=== PATIENT | male | born 1975 | race Caucasian/White ===

== ENCOUNTER → 2020-12-07 11:08 | Outpatient (BNVA) | payer OTHER, SELFPAY | PROVIDERS: PCP Nurse Practitioner Family; Visit Provider Nurse Practitioner Family | DX: Z13.89 Encounter for screening for other disorder (principal) ==

== ENCOUNTER → 2021-06-14 10:39 | Outpatient (BNVA) | payer OTHER, SELFPAY | PROVIDERS: PCP Nurse Practitioner Family; Visit Provider Nurse Practitioner Family ==

== ENCOUNTER → 2021-11-22 09:50 | Outpatient (BNVA) | payer OTHER, SELFPAY | PROVIDERS: PCP Nurse Practitioner Family; Referring Provider Nurse Practitioner Family; Visit Provider Nurse Practitioner Family ==

== ENCOUNTER → 2022-01-03 10:02 | Outpatient (BNVA) | payer OTHER, SELFPAY | PROVIDERS: PCP Nurse Practitioner Family; Visit Provider Internal Medicine | DX: G47.33 Obstructive sleep apnea (adult) (pediatric) (principal); E66.01 Morbid (severe) obesity due to excess calories; R05.9 Cough, unspecified; R53.83 Other fatigue; I35.8 Other nonrheumatic aortic valve disorders; Z99.89 Dependence on other enabling machines and devices | CPT/HCPCS: 99202 ==

== ENCOUNTER 2022-01-04 11:06 | Outpatient (REF) | payer OTHER, SELFPAY ==
--- NOTE | 2022-01-04 10:31 | PFT_ITS ---
FLOWS: FEV1 100% of predicted at 3.53 L. FVC 87% of predicted at 3.91 L. FEV1 to FVC ratio of 0.91. No bronchodilator response. LUNG VOLUMES: Total lung capacity 87% of predicted at 5.38 L. Residual volume 75% of predicted at 1.34 L. Diffusion capacity is normal. IMPRESSION: No obstructive or restrictive ventilatory defect. No bronchodilator response. Decreased expiratory reserve volume suggests extrathoracic restriction, likely secondary to abdominal obesity. Patrick Ayon MD AP/MODL / [id number]
== END 2022-01-04 11:07 | disposition home or self-care (01) ==
LOC: HO.RESP 11:06
PROVIDERS: PCP Nurse Practitioner Family; Visit Provider Internal Medicine
DX: R05.9 Cough, unspecified (principal)
CPT/HCPCS: 94060; 94727; 94729

== ENCOUNTER 2023-04-24 10:32 | Outpatient (AMB) | payer OTHER, SELFPAY ==
[2023-04-24 10:46] VITALS: BP 140/88; PULSE 93; O2SAT 97; BMI 37.8
--- NOTE | 2023-04-24 10:46 | MHC.PC.OV ---
Vital Signs 04/24/23 10:46 Height 5 ft 6 in Weight 234 lb 2 oz BMI 37.8 BP 140/88 H Blood Pressure Location Lt brachial Position Sitting Pulse 93 Pulse Source Pulse Oximeter Pulse Oximetry (%) 97 Oxygen Delivery Method Room Air Intake Visit Reasons: Discuss referral Allergies lisinopril Allergy (Unknown, Verified 04/24/23 10:47) Cough Tobacco use date assessed: 04/24/23 Dental Screening Dental Screen Date: 04/24/23 Did you have a dental visit in the last 12 months?: Yes Did you have a dental problem in the last 6 months where you did not have access to dental care?: No Was dental information given to patient?: Patient has dentist HPI Discuss referral HPI Details Pt reports a skin lesion to his right cheek. He also reports a large skin tag to his mid upper back that gets caught on occupational equipment. He would like a referral to derm, will refer. Denies fever, chills, and dizziness. Pt has a hx of nerve root compression. He needs this documented. Pt reports that his back acts up when doing long distance running for the [employer], so I do not want him doing this. [facility]LY [facility], [facility] Medical History (Updated 04/24/23 @ 11:17 by Gil Duarte, [facility]) Morbid obesity Nerve root compression Systolic murmur of aorta Surgical History Hx of appendectomy Social History Housing: House Alcohol intake: former Patient Tobacco Use Status: Former Tobacco user e-Cigarette/Vaping Use: Never Used Second Hand Smoke Exposure: No service: Yes Current occupational status: employed Current occupational exposures/hazards: Yes Cognitive needs: No Hearing needs: No Vision needs: No Physical exam (Primary Care) Vital Signs: Last Vital Signs Pulse 93 04/24/23 10:46 BP 140/88 H 04/24/23 10:46 Pulse Ox 97 04/24/23 10:46 Oxygen Delivery Method Room Air 04/24/23 10:46 BMI result Body Mass Index 37.8 Tobacco/Smoking Status: Tobacco use Status Tobacco use date assessed 04/24/23 04/24/23 10:51 Patient Tobacco Use Status Former Tobacco user 04/24/23 10:51 e-Cigarette/Vaping Use Never Used 04/24/23 10:51 Const General: cooperative Nutritional Appearance: obese Orientation/consciousness: patient oriented x3 Resp Effort & Inspection: normal respiratory effort Auscultation: clear to auscultation bilaterally Cardio Rate: regular rate Rhythm: regular rhythm Heart sounds: S1 normal heart sound present, S2 normal heart sound present and Murmur heart sound present systolic Skin Other: macular lesion to right side of face, slight discoloration, large skin tag to upper mid back Neuro General: patient oriented x3 Psych Appearance: grossly normal Mental Status: mental status grossly normal Speech and movement: Normal speech and movement present Affect: normal affect Attitude: cooperative Thought process: Normal thought process present Thought content: Normal thought content present Insight: Good insight present (Psych) Judgement: Good judgement present (Psych) Assessment and Plan Assessment & Plan (1) Physical exam: Code(s): Z00.00 - Encounter for general adult medical examination without abnormal findings Plan The patient agreed to the use of a medical genetics director for this encounter. Scribed for JOESPH Felton by Evelyn Knapp medical genetics director, on 04/24/2023 at 11:00 EST. Orders: Orders Comprehensive [place]. Panel Fast Today Z00.00 - Encounter for general adult medical examination without abnormal findings Lipid Panel Today Z00.00 - Encounter for general adult medical examination without abnormal findings TSH reflex Free T4 Today Z00.00 - Encounter for general adult medical examination without abnormal findings Complete Blood Count Auto Diff Today Z00.00 - Encounter for general adult medical examination without abnormal findings UA CC w/rflx Micro + Cult Today Z00.00 - Encounter for general adult medical examination without abnormal findings Referrals Dermatology Referral L98.9 - Disorder of the skin and subcutaneous tissue, unspecified Coding Level of Care Code Est Pt Level 3 (00203) Diagnoses Physical exam Z00.00
== END 2023-04-24 11:28 | disposition home or self-care (01) ==
PROVIDERS: Visit Provider Nurse Practitioner Family
DX: L98.9 Disorder of the skin and subcutaneous tissue, unspecified (principal)
CPT/HCPCS: 99213

== ENCOUNTER 2023-08-13 13:30 | Outpatient (AMB) | payer OTHER, SELFPAY ==
[2023-08-13 13:44] VITALS: RESP 12; BMI 38.4
--- NOTE | 2023-08-13 13:44 | MHC.OFFVIS ---
Intake Vital Signs 08/13/23 13:44 Height 5 ft 6 in Weight 238 lb BMI 38.4 Blood Pressure Location Lt brachial Position Sitting Respiration 12 Pulse Source Pulse Oximeter Intake Visit Reasons: Low Back Pain, Unspecified /confirmed Allergies lisinopril Allergy (Unknown, Verified 08/13/23 13:46) Cough Medication List - Last Reconciled 08/13/23 by Anabella Ortiz LPN albuterol sulfate 90 mcg/actuation (ProAir HFA) 2 puffs inhalation Q4-6H PRN atorvastatin 20 mg PO BEDTIME 90 days cholecalciferol (vitamin D3) 25 mcg PO DAILY losartan 25 mg PO DAILY 90 days HPI Low Back Pain, Unspecified /confirmed HPI Details 48-year-old male who presents today to the office for an evaluation of low back pain. The patient reports low back pain that started about 5 years ago. His last visit was in 2019. He describes his pain as intermittent, sharp, and stabbing sensations in his low back. He rates his pain at 10/10 in intensity. His average pain is 6/10 in intensity. His pain radiates from the side up to the paraspinal area. General activities, recreational activities, and sleeping are affected by pain. He has been doing physical therapy and home exercises for the past two years without significant progress. He states that his pain starts to worsen after running for a quarter mile. He states that a completely filled bladder worsens the pain in the back. He also reports his legs going numb if he sits flat on the floor for more than 30 minutes. His back pain starts worsening after one and a half minutes of plank exercise. [facility] Medical History (Updated 08/14/23 @ 13:29 by Alvino Milton MD) Nerve root compression Systolic murmur of aorta Morbid obesity Surgical History Hx of appendectomy Social History Housing: House Alcohol intake: former Patient Tobacco Use Status: Former Tobacco user e-Cigarette/Vaping Use: Never Used Second Hand Smoke Exposure: No service: Yes Current occupational status: employed Current occupational exposures/hazards: Yes Cognitive needs: No Hearing needs: No Vision needs: No Review of Systems Const All systems reviewed & are unremarkable except as noted in HPI and below Physical Exam Vital Signs: Last Vital Signs Resp 12 08/13/23 13:44 BMI result Body Mass Index 38.4 General: Appears afebrile. Alert and oriented. Mood and affect appropriate. Follows and participates in conversation appropriately. Respiratory effort is unlabored. Able to transition from sit to stand unassisted. Ambulates with bilaterally normal heel strike and toe off. Exquisite tenderness on palpation just above the gluteal cleft in the midline.? Forward flexion does not reproduce pain. Rightward lateral axial rotation makes the right lower back more sensitive. Facet loading is positive more on the right than left. Lumbar extension reproduces pain. Results Reviewed Results Reviewed: EXAMINATION: MR LUMBAR SPINE WITHOUT CONTRAST Oct 2019 CLINICAL INFORMATION: Acute midline low back pain. COMPARISON: None. TECHNIQUE: MRI of the lumbar spine was obtained using routine sequences without contrast. FINDINGS: VERTEBRAL BODIES AND PARASPINAL STRUCTURES: Superior endplate Schmorl's node noted at L5. The S1 vertebra is transitional and partially lumbarized. A rudimentary S1-S2 disc space is present. Endplate spurring and mild disc space narrowing visible on sagittal imaging at the T11-T12 level. The marrow signal is within normal limits. There are no compression fractures or subluxations. The paraspinal soft tissues are unremarkable. There are mild degenerative changes of the sacroiliac joints. CONUS MEDULLARIS AND CAUDA EQUINA: Normal, terminating at the level of L1. No lower cord signal abnormality is seen. The cauda equina nerve roots are normal. SPINAL LEVELS: L1-L2, L2-L3, and L3-L4: Well-hydrated normal appearance of the discs without central canal stenosis or foraminal narrowing. L4-L5: Mild disc bulge with endplate Schmorl's nodes. No central canal stenosis or foraminal narrowing. No focal disc protrusion. L5-S1: Hypertrophic facet arthropathy and minimal annular bulge without central canal stenosis. Facet spurring impinges upon the exiting left L5 nerve root in the neural foramen. IMPRESSION: Hypertrophic facet arthropathy protruding into the left L5-S1 neural foramen mildly distorting the exiting left L5 nerve root. Mild spondylitic changes at L4-L5. No central canal stenosis. Assessment & Plan Assessment & Plan (1) Lumbar radiculitis: Code(s): M54.16 - Radiculopathy, lumbar region (2) Lumbar spondylosis: Code(s): M47.816 - Spondylosis without myelopathy or radiculopathy, lumbar region (3) Vertebrogenic low back pain: Code(s): M54.51 - Vertebrogenic low back pain Plan Ordered a repeat MRI scan of the lumbar spine for further evaluation. We will review the MRI scan report and proceed with either facet interventions or BVN ablation. For the time being, I encouraged the patient to perform gentle exercises and swim. It is also recommended to try a good mattress and pillow at night. Scribed for Dr. Milton by Luciano Romero, biomedical service engineer, on 08/13/2023. I, Dr. Milton, have personally reviewed and agree with the information entered by the scribe. Coding Level of Care Code New Pt Level 4 (02874) Diagnoses Lumbar radiculitis M54.16 Lumbar spondylosis M47.816 Vertebrogenic low back pain M54.51
== END 2023-08-13 14:24 | disposition home or self-care (01) ==
PROVIDERS: PCP Nurse Practitioner Family; Visit Provider Internal Medicine
DX: M54.16 Radiculopathy, lumbar region (principal); M47.816 Spondylosis without myelopathy or radiculopathy, lumbar region; M54.51 Vertebrogenic low back pain
CPT/HCPCS: 99204

== ENCOUNTER → 2023-08-13 13:30 | Outpatient (BNVA) | payer OTHER, SELFPAY | PROVIDERS: PCP Nurse Practitioner Family; Visit Provider Internal Medicine | DX: M54.16 Radiculopathy, lumbar region (principal); M47.816 Spondylosis without myelopathy or radiculopathy, lumbar region; M54.51 Vertebrogenic low back pain | CPT/HCPCS: 99202 ==

== ENCOUNTER 2023-10-06 13:45 | Outpatient (REF) | payer OTHER, SELFPAY | END 2023-10-06 13:46 | disposition home or self-care (01) | LOC: HO.MRI 13:45 | PROVIDERS: Visit Provider Internal Medicine | DX: M54.16 Radiculopathy, lumbar region (principal) | CPT/HCPCS: 72148 ==

== ENCOUNTER 2023-10-26 10:07 | Outpatient (AMB) | payer OTHER, SELFPAY ==
--- NOTE | 2023-10-26 10:08 | A.OFFVIS_ITS ---
Intake Vital Signs 10/26/23 10:10 Height 5 ft 6 in Weight 232 lb BMI 37.4 BP 178/98 H Blood Pressure Location Lt brachial Position Sitting Respiration 12 Pulse 76 Pulse Source Pulse Oximeter Pulse Oximetry (%) 98 Oxygen Delivery Method Room Air Intake Visit Reasons: MRI FOLLOW UP Intake Note: Pt's BP grossly elevated, he states he has not been taking his BP med. I encouraged him to do so Allergies lisinopril Allergy (Unknown, Verified 10/26/23 10:14) Cough Medication List - Last Reconciled 10/26/23 by Anabella Ortiz LPN albuterol sulfate 90 mcg/actuation (ProAir HFA) 2 puffs inhalation Q4-6H PRN trazodone 25 mg PO DAILY HPI MRI FOLLOW UP HPI Details 48-year-old male who presents today to t he office for an MRI scan follow-up. We reviewed the MRI scan result with today. We reviewed the MRI results today that showed some modic changes at the superior endplate of L4 as well. Since his last visit, he reports improvement in his low back pain. He is also been working on his weight loss. He attributes his improvement in low back symptoms to weight loss. He continues to have 7-8/10 in intensity at the end of the day when he engages in running or strenuous exercise. [facility]LY [facility] Medical History (Updated 08/14/23 @ 13:29 by Alvino Milton MD) Nerve root compression Systolic murmur of aorta Morbid obesity Surgical History Hx of appendectomy Social History Housing: House Alcohol intake: former Patient Tobacco Use Status: Former Tobacco user e-Cigarette/Vaping Use: Never Used Second Hand Smoke Exposure: No service: Yes Current occupational status: employed Current occupational exposures/hazards: Yes Cognitive needs: No Hearing needs: No Vision needs: No Review of Systems Const All systems reviewed & are unremarkable except as noted in HPI and below Physical Exam Vital Signs: Last Vital Signs Pulse 76 10/26/23 10:10 Resp 12 10/26/23 10:10 BP 178/98 H 10/26/23 10:10 Pulse Ox 98 10/26/23 10:10 Oxygen Delivery Method Room Air 10/26/23 10:10 BMI result Body Mass Index 37.4 General: Appears afebrile. Alert and oriented. Mood and affect appropriate. Follows and participates in conversation appropriately. Respiratory effort is unlabored. Able to transition from sit to stand unassisted. Ambulates with bilaterally normal heel strike and toe off. Forward flexion reproduces pain. Rising up from the forward flexed position also reproduces pain. Lumbar extension reproduces mild pain in the axial low back. Results Reviewed Results Reviewed: 10/06/23: MR LUMBAR SPINE WITHOUT CONTRAST FINDINGS: There is transitional lumbosacral anatomy with lumbarization of S1 and rudimentary disc space at S1-S2 Normal anatomic alignment. No suspicious marrow signal or focal osseous lesion. T12 vertebral body hemangioma. No significant marrow edema. Small L5 superior endplate Schmorl's node. The vertebral body heights are maintained. Disc desiccation and mild height loss at L4-L5. Mild degenerative disc disease and endplate spurring at T11-T12. The conus medullaris terminates at the level of L1-L2. The distal spinal cord is normal in appearance. The cauda equina nerve roots appear normal. No significant abnormalities of the paraspinal musculature. Limited evaluation of the intra-abdominal structures without significant abnormalities. The abdominal aorta is of normal contour and caliber. SPINAL LEVELS: L1-L2: No significant spinal canal or neuroforaminal narrowing. L2-L3: No significant spinal canal or neuroforaminal narrowing. L3-L4: No significant spinal canal or neuroforaminal narrowing. L4-L5: No significant spinal canal or neuroforaminal narrowing. Minimal disc bulge L5-S1: Facet arthropathy. Minimal disc bulge. No significant central spinal canal stenosis. Stable mild bilateral neural foraminal narrowing. IMPRESSION: 1. 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 2. Mild degenerative changes of the lower lumbar spine. No significant spinal canal stenosis or high-grade neural foraminal narrowing. Assessment & Plan Assessment & Plan (1) Vertebrogenic low back pain: Code(s): M54.51 - Vertebrogenic low back pain (2) Lumbar spondylosis: Code(s): M47.816 - Spondylosis without myelopathy or radiculopathy, lumbar region Plan Symptoms appear to be secondary to vertebral endplate changes. There is a Schmorl's node at superior L5 endplate and type 1 Modic changes at inferior L4 endplate. We will schedule him for BVN ablation L4, L5. Discussed the risks and benefits of the procedure with the patient in detail. All questions were answered. The patient is on board with the plan. Justification for interventional therapy: ? Patient with average pain > 6/10 ? Patient has exhausted conservative therapy ? Patient unable to tolerate physical therapy due to pain Scribed for Dr. Milton by Luciano Romero, medical research tech, on 10/26/2023. I, Dr. Milton, have personally reviewed and agree with the information entered by the scribe. Coding Level of Care Code Est Pt Level 4 (64268) Diagnoses Vertebrogenic low back pain M54.51 Lumbar spondylosis M47.816
[2023-10-26 10:10] VITALS: BP 178/98; PULSE 76; RESP 12; O2SAT 98; BMI 37.4
== END 2023-10-26 10:51 | disposition home or self-care (01) ==
PROVIDERS: PCP Nurse Practitioner Family; Visit Provider Internal Medicine
DX: M54.51 Vertebrogenic low back pain (principal); M47.816 Spondylosis without myelopathy or radiculopathy, lumbar region
CPT/HCPCS: 99214

== ENCOUNTER → 2023-10-26 10:07 | Outpatient (BNVA) | payer OTHER, SELFPAY | PROVIDERS: PCP Nurse Practitioner Family; Visit Provider Internal Medicine | DX: M47.816 Spondylosis without myelopathy or radiculopathy, lumbar region (principal); M54.51 Vertebrogenic low back pain | CPT/HCPCS: 99212 ==

== ENCOUNTER 2023-11-19 06:50 | Outpatient (REF) | payer OTHER, SELFPAY ==
[2023-11-19 11:36] LABS: Appearance Urine Turbid; Color Urine Yellow; Glucose Urine UA >=1000 mg/dL (Negative); Leukocyte Esterase Urine Negative (Negative); Nitrite Urine Negative (Negative); PH 5.5 (5.0-9.0); Specific Gravity - Urine >= 1.030 (1.005-1.025); UMIC TRIGGER UACC YES; Urine Blood Negative (Negative); Urine Ketones Negative (Negative); Urine Protein Negative (Neg-Trace)
[2023-11-19 11:39] LABS: MANUAL DIFF FLAG NO
[2023-11-19 11:40] LABS: Bacteria Urine None Seen (None Seen); Hyaline Casts Urine 0-2 /LPF (0-2); RBC Urine 0-2 /HPF (0-2); Squamous Epithelial Cell Urine 0-2 /HPF (0-2); WBC Urine 0-5 /HPF (0-5)
[2023-11-19 11:44] LABS: Basophils Percent Auto 0.3 % (0-2); Eosinophils Absolute Auto 0.1 X10*3/uL (0.0-0.4); Eosinophils Percent Auto 1.3 % (0-4); Hematocrit 47.4 % (42.0-52.0); Hemoglobin 16.4 g/dl (14.0-18.0); Imm Gran Abs Auto 0.03 X10*3/uL (0.00-0.03); Imm Gran Pct Auto 0.4 % (0.0-0.4); Lymphocytes Absolute Auto 1.7 X10*3/uL (1.2-4.9); Lymphocytes Percent Auto 21.7 % (20-40); Mean Corpuscular HGB Conc 34.6 g/dl (31.0-36.0); Mean Corpuscular Hemoglobin 29.1 pg (27.0-33.0); Mean Corpuscular Volume 84.2 fL (80.0-98.0); Mean Platelet Volume 9.9 fL (9.4-12.4); Monocytes Absolute Auto 0.7 X10*3/uL (0.1-1.2); Monocytes Percent Auto 8.3 % (2-11); Neutrophils Absolute Auto 5.3 x10*3/uL (2.0-8.3); Platelet Count 247 X10*3/uL (160-400); Red Blood Count 5.63 X10*6/uL (4.60-5.80); Red Cell Distribution Width 12.3 % (11.0-16.0); White Blood Count 7.8 X10*3/uL (4.8-10.8)
[2023-11-19 12:10] LABS: Alanine Aminotransferase 30 U/L (0-40); Albumin Level 4.1 g/dL (3.5-5.0); Alkaline Phosphatase 79 U/L (39-117); Anion Gap 12 (12-20); Aspartate Amino Transferase 18 U/L (5-37); Bilirubin Total 0.5 mg/dL (0.0-1.0); Blood Urea Nitrogen 14 mg/dL (9-16); Calcium 9.4 mg/dL (8.4-10.2); Carbon Dioxide 26 mmol/L (22-29); Chloride 103 mmol/L (96-108); Cholesterol 265 mg/dL (<200); Estimated Glomerular Filt Rate > 60; Glucose Fasting 261 mg/dL (60-99); HDL Cholesterol 36 mg/dL (>40); LDL Cholesterol Calculated 171 mg/dL (<100); Potassium 3.9 mmol/L (3.3-5.1); Sodium 137 mmol/L (135-145); Total Protein 7.1 g/dL (6.5-8.0); Triglycerides 293 mg/dL (<150)
[2023-11-19 12:28] LABS: TSH reflex Free T4 1.27 uIU/mL (0.32-4.0)
== END 2023-11-19 06:51 | disposition home or self-care (01) ==
LOC: HO.HMGCLDS 06:50
PROVIDERS: PCP Nurse Practitioner Family; Visit Provider Nurse Practitioner Family
DX: Z00.00 Encounter for general adult medical examination without abnormal findings (principal); E11.9 Type 2 diabetes mellitus without complications
CPT/HCPCS: 36415; 80053; 80061; 81001; 84443; 85025

== ENCOUNTER 2023-11-20 11:14 | Outpatient (AMB) | payer OTHER, SELFPAY ==
[2023-11-20 11:29] VITALS: BP 120/86; PULSE 80; O2SAT 98; BMI 37.3
--- NOTE | 2023-11-20 11:29 | A.OFFPC_ITS ---
Vital Signs 11/20/23 11:29 Height 5 ft 6 in Weight 231 lb 2 oz BMI 37.3 BP 120/86 Blood Pressure Location Lt brachial Position Sitting Pulse 80 Pulse Source Pulse Oximeter Pulse Oximetry (%) 98 Oxygen Delivery Method Room Air Intake Visit Reasons: Newly high Blood sugar Intake Note: Pt is here to follow up for EFG Allergies lisinopril Allergy (Unknown, Verified 11/20/23 11:31) Cough Medication List - Last Reconciled 11/20/23 by PETER Quinonez-YOLANDA albuterol sulfate 90 mcg/actuation (ProAir HFA) 2 puffs inhalation Q4-6H PRN atorvastatin 20 mg PO BEDTIME losartan 25 mg PO DAILY trazodone 25 mg PO DAILY Tobacco use date assessed: 11/20/23 Dental Screening Dental Screen Date: 11/20/23 Did you have a dental visit in the last 12 months?: Yes Did you have a dental problem in the last 6 months where you did not have access to dental care?: No Was dental information given to patient?: Patient has dentist HPI Newly high Blood sugar HPI Details Pt is a newly diagnosed diabetic. A1C in office today is 10.9. Due for microalbumin. Denies polydipsia and neuropathy, does report intermittent polyuria. Pt denies any signs and symptoms of hypoglycemia and does know how to correct it. Will start metformin ER 500mg bid. Educated pt on proper diet and portion sizes, he will look up meal ideas. Will send meter and supplies, educated on bid testing. Will refer to nurse navigator. Will also start atorvastatin 20mg and losartan 25mg. [facility] Medical History Nerve root compression Systolic murmur of aorta Morbid obesity Surgical History Hx of appendectomy Social History Housing: House Alcohol intake: former Patient Tobacco Use Status: Former Tobacco user e-Cigarette/Vaping Use: Never Used Second Hand Smoke Exposure: No service: Yes Current occupational status: employed Current occupational exposures/hazards: Yes Cognitive needs: No Hearing needs: No Vision needs: No Review of Systems Const Reports as per HPI Physical exam (Primary Care) Vital Signs: Last Vital Signs Pulse 80 11/20/23 11:29 BP 120/86 11/20/23 11:29 Pulse Ox 98 11/20/23 11:29 Oxygen Delivery Method Room Air 11/20/23 11:29 BMI result Body Mass Index 37.3 Tobacco/Smoking Status: Tobacco use Status Tobacco use date assessed 11/20/23 11/20/23 11:33 Patient Tobacco Use Status Former Tobacco user 11/20/23 11:33 e-Cigarette/Vaping Use Never Used 11/20/23 11:33 Const General: cooperative Nutritional Appearance: obese Orientation/consciousness: patient oriented x3 Resp Effort & Inspection: normal respiratory effort Auscultation: clear to auscultation bilaterally Cardio Rate: regular rate Rhythm: regular rhythm Heart sounds: S1 normal heart sound present and S2 normal heart sound present Neuro General: patient oriented x3 Extrem Other: bilat feet: + sensation with use of monofilament, right foot dry and calloused, old scar Psych Appearance: grossly normal Mental Status: mental status grossly normal Speech and movement: Normal speech and movement present Affect: normal affect Attitude: cooperative Thought process: Normal thought process present Thought content: Normal thought content present Insight: Good insight present (Psych) Judgement: Good judgement present (Psych) Results AMB Hemoglobin A1c AMB Hemoglobin A1c 10.9 % Last Edit by Sera Amaya CMA on 11/20/23 11 :50 Results Reviewed Results Reviewed: Laboratory Last Values Hgb A1c (Clinic) 10.9 % (4.0-6.0) H 11/20/23 11:49 Assessment and Plan Assessment & Plan (1) Newly diagnosed diabetes: Code(s): E11.9 - Type 2 diabetes mellitus without complications Plan: Labs ordered, meds started (statin, ARB, metformin) Plan The patient agreed to the use of a medical records assistant for this encounter. Scribed for JOESPH Felton by Evelyn Knapp medical records assistant, on 11/20/2023 at 11:45 EST. Orders: Orders Complete Blood Count Auto Diff Today E11.9 - Type 2 diabetes mellitus without complications TSH reflex Free T4 Today E11.9 - Type 2 diabetes mellitus without complications UA CC w/rflx Micro + Cult Today E11.9 - Type 2 diabetes mellitus without complications Lipid Panel Today E11.9 - Type 2 diabetes mellitus without complications Comprehensive [place]. Panel Fast Today E11.9 - Type 2 diabetes mellitus without complications Microalbumin, Random (w Creat) Today E11.9 - Type 2 diabetes mellitus without complications AMB Hemoglobin A1c Today E11.9 - Type 2 diabetes mellitus without complications Referrals Nurse Navigator Referral E11.9 - Type 2 diabetes mellitus without complications Medications: New atorvastatin 20 mg PO BEDTIME 90 tabs 0RF losartan 25 mg PO DAILY 90 tabs 0RF metformin ER 500 mg PO BID 180 tabs 0RF 90 days Coding Level of Care Code Est Pt Level 3 (74757) Diagnoses Newly diagnosed diabetes E11.9
== END 2023-11-20 12:27 | disposition home or self-care (01) ==
PROVIDERS: PCP Nurse Practitioner Family; Visit Provider Nurse Practitioner Family
DX: E11.9 Type 2 diabetes mellitus without complications (principal)
CPT/HCPCS: 83036; 99213

== ENCOUNTER 2024-01-02 08:07 | Outpatient (AMB) | payer OTHER, SELFPAY ==
--- NOTE | 2024-01-02 08:17 | A.OFFPC_ITS ---
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 Allergies lisinopril Allergy (Unknown, Verified 01/02/24 08:18) Cough Medication List - Last Reconciled 01/02/24 by PETER Quinonez-YOLANDA albuterol sulfate 90 mcg/actuation (ProAir HFA) 2 puffs inhalation Q4-6H PRN atorvastatin 20 mg PO BEDTIME blood-glucose meter (FreeStyle Lite Meter kit) As directed FreeStyle Lite Strips (blood sugar diagnostic) Test blood sugar once a day NS lancets (FreeStyle Lancets) Test blood sugar once a day losartan 25 mg PO DAILY metformin ER 500 mg PO BID 90 days semaglutide (Ozempic) 0.25 mg (0.368 mL) subcut QWEEK trazodone 25 mg PO DAILY Tobacco use date assessed: 11/20/23 Dental Screening Dental Screen Date: 01/02/24 Did you have a dental visit in the last 12 months?: Yes Did you have a dental problem in the last 6 months where you did not have access to dental care?: No Was dental information given to patient?: Patient has dentist HPI PE HPI Details Pt is here for a PE. Labs have already been ordered. Due for colon screen, will refer to GI. Due for PSA in the near future, will order. Denies dribbling with urination, weak stream, and frequent nocturia. Pt is a diabetic, on an ARB and a statin. Last A1C was 10.9. Due for microalbumin, will order. Denies polyuria, polydipsia, and neuropathy. Pt denies any signs and symptoms of hypoglycemia and does know how to correct it. Will start ozempic 0.25mg. Eye exam is scheduled. He will be following up with nurse navigator. [facility], [facility] Medical History Nerve root compression Systolic murmur of aorta Morbid obesity Surgical History Hx of appendectomy Social History Housing: House Alcohol intake: former Patient Tobacco Use Status: Former Tobacco user e-Cigarette/Vaping Use: Never Used Second Hand Smoke Exposure: No service: Yes Current occupational status: employed Current occupational exposures/hazards: Yes Cognitive needs: No Hearing needs: No Vision needs: No Questionnaire PHQ-9 Over the last 2 weeks, how often have you been bothered by any of the following problems? 1. Little interest or pleasure in doing things: not at all 2. Feeling down, depressed, or hopeless: not at all 3. Trouble falling or staying asleep, or sleeping too much: not at all 4. Feeling tired or having little energy: not at all 5. Poor appetite or overeating: not at all 6. Feeling bad about yourself - or that you are a failure or have let yourself or your family down: not at all 7. Trouble concentrating on things, such as reading the newspaper or watching television: not at all 8. Moving or speaking so slowly that other people could have noticed. Or the opposite - being so fidgety or restless that you have been moving around a lot more than usual: not at all 9. Thoughts that you would be better off or of hurting yourself in some way: not at all Total score: 0 Depression Screening Interpretation: Negative Depression Screening Done: Yes 97005 - PHQ-9 Billing: Yes Source: Developed by Drs. Froilan Pina, Becky Pierce, William Rosales and colleagues, with an educational karl from [employer]. Thrive Questionnaire Date Thrive assessed: 01/02/24 I am a: Patient What is your living situation today?: I have a steady place to live Within the past 12 months, did the food you bought not last and you didn't have the money to get more?: Never true Within the past 12 months, did you worry whether your food would run out before you got money to buy more?: Never true Do you have trouble paying for medicines?: No Do you have trouble getting transportation to medical appointments?: No Do you have trouble paying your heating and electricity bill?: No Do you have trouble taking care of your child, family member or friend?: No Do you have trouble with day-to-day activities such as bathing, preparing meals, shopping, managing finances, etc.?: No Are you currently unemployed and looking for a job?: No Are you interested in more education?: No Please select the resources that you would like help with: None Currently or been in a relationship where the following occur: no concerns reported THRIVE Score: 0 KEATON-7 AMB Questionnaire KEATON-7 Date KEATON - 7 assessed: 01/02/24 Feeling nervous, anxious, or on edge: 0 = Not at all Not being able to stop or control worryin = Not at all Worrying too much about different things: 0 = Not at all Trouble relaxin = Not at all Being so restless that it is hard to sit still: 0 = Not at all Becoming easily annoyed or irritable: 0 = Not at all Feeling afraid as if something awful might happen: 0 = Not at all Total KEATON-7 score (0-4 normal; 5-9 mild; 10-14 moderate; 15-21 severe): 0 Source: Developed by Drs. Froilan Pina, Becky Pierce, William Rosales and colleagues, with an educational karl from [employer]. KEATON-7 Assessment Billing KEATON-7 Assessment Tool: KEATON-7 Assessment 02666 Review of Systems Const Denies chills and Denies fever(s) Eyes Denies blurry vision ENT Denies vertigo, Denies dizziness and Denies sore throat Card Denies chest pain at rest, Denies chest pain with activity, Denies diaphoresis, Denies dyspnea and Denies dyspnea on exertion Resp Denies cough, Denies dyspnea, Denies dyspnea on exertion and Denies wheezing GI Denies abdominal pain, Denies melena, Denies hematochezia, Denies constipation, Denies diarrhea and Denies loose stools Denies hematuria Musc Denies numbness and Denies tingling Skin/Breast Denies lesions Neuro Denies vertigo, Denies dizziness, Denies numbness and Denies tingling Psych Denies anxiety, Denies depression, Denies homicidal ideation, Denies suicidal ideation and Denies other (substance abuse) Aller/Immun Denies wheezing Physical exam (Primary Care) Vital Signs: Last Vital Signs Pulse 82 01/02/24 08:18 BP 122/80 01/02/24 08:18 Pulse Ox 98 01/02/24 08:18 Oxygen Delivery Method Room Air 01/02/24 08:18 BMI result Body Mass Index 36.5 Tobacco/Smoking Status: Tobacco use Status Tobacco use date assessed 11/20/23 01/02/24 08:21 Patient Tobacco Use Status Former Tobacco user 01/02/24 08:21 e-Cigarette/Vaping Use Never Used 01/02/24 08:21 PHQ-9: PHQ-9 Score PHQ-9: Total score 0 01/02/24 08:24 Depression Screening Interpretation: Negative Thrive Assessment: Date of Thrive Assessment Date Thrive assessed 01/02/24 01/02/24 08:24 Currently or been in a relationship where the following occur: no concerns reported Const General: cooperative Nutritional Appearance: obese Orientation/consciousness: patient oriented x3 HENMT Head: Yes normal to inspection, Yes normocephalic and Yes atraumatic Ears: TM's normal bilaterally Eyes General: appearance normal, both eyes and all related structures Alignment and Position: alignment normal and position normal Neck Neck: Yes normal visual inspection and Yes no lymphadenopathy Thyroid: Thyroid normal Resp Effort & Inspection: normal respiratory effort Auscultation: clear to auscultation bilaterally Cardio Rate: regular rate Rhythm: regular rhythm Heart sounds: S1 normal heart sound present, S2 normal heart sound present and no murmurs GI Palpation (GI): Soft to palpation and nontender Auscultation: normal bowel sounds Male General Exam: Yes normal external exam Penis: normal penis Scrotum: scrotum normal, testes descended bilaterally and no inguinal hernias Testes: no testicular mass Skin Rashes: no rashes Neuro General: patient oriented x3, moves all extremities, no focal motor deficits and deep tendon reflexes 2+ bilaterally Romberg Test: Negative Extrem Other: bilat feet: + sensation with use of monofilament, feet intact, right foot medial right heel with healed scar with dry skin surrounding scar tissue Psych Appearance: grossly normal Mental Status: mental status grossly normal Speech and movement: Normal speech and movement present Affect: normal affect Attitude: cooperative Thought process: Normal thought process present Thought content: Normal thought content present Insight: Good insight present (Psych) Judgement: Good judgement present (Psych) Immunizations pneumoc 20-trish conj-dip cr(PF) 0.5 mL IM syringe Performing Provider: JOESPH Quinonez [place] [facility] [facility] Administered by: Jesus Kearney CMA on 01/02/24 09:04 Dose Route Admin Location Dispensed Lot Number Expiration Date NDC Medical Parasitologist 0.5 mL IM Left Deltoid 0.5 mL [id number] 11/15/24 6897-8987-21 WYETH/PFIZER VIS Given Date VIS Provided VIS Publication Date 01/02/24 Single Vaccine 21 Eligibility Eligibility Date Funding Source Not [facility] Eligible 01/02/24 Private Assessment and Plan Assessment & Plan (1) Physical exam: Code(s): Z00.00 - Encounter for general adult medical examination without abnormal findings Plan: Labs already ordered (2) Newly diagnosed diabetes: Code(s): E11.9 - Type 2 diabetes mellitus without complications Plan: Labs ordered, starting ozempic (3) Screening for colon cancer: Code(s): Z12.11 - Encounter for screening for malignant neoplasm of colon Plan: Referred to GI Plan The patient agreed to the use of a medical staff physician for this encounter. Scribed for JOESPH Felton by Evelyn Knapp medical staff physician, on 01/02/2024 at 08:20 EST. Orders: Orders Prostate Specific Antigen Scr Today Z00.00 - Encounter for general adult medical examination without abnormal findings, Z12.5 - Encounter for screening for malignant neoplasm of prostate Hemoglobin A1c Today E11.9 - Type 2 diabetes mellitus without complications Pneumococcal 20 Immunization Today Z23 - Encounter for immunization Referrals Gastroenterology Referral Z12.11 - Encounter for screening for malignant neoplasm of colon Medications: New semaglutide (Ozempic) for 4 weeks 0.25 mg (0.368 mL) subcut QWEEK 3 mL 0RF Coding Level of Care Code Est Pt Prev Care 40-64y(16694) Diagnoses Physical exam Z00.00 Newly diagnosed diabetes E11.9 Screening for colon cancer Z12.11 Additional Codes KEATON-7 Assessment Billing - KEATON-7 Assessment Tool: KEATON-7 Assessment 33125 ([id number])
[2024-01-02 08:18] VITALS: BP 122/80; PULSE 82; O2SAT 98; BMI 36.5
== END 2024-01-02 08:44 | disposition home or self-care (01) ==
PROVIDERS: PCP Nurse Practitioner Family; Visit Provider Nurse Practitioner Family
DX: Z00.00 Encounter for general adult medical examination without abnormal findings (principal); E11.9 Type 2 diabetes mellitus without complications; Z12.11 Encounter for screening for malignant neoplasm of colon; Z23 Encounter for immunization
CPT/HCPCS: 90471; 90677; 99396

== ENCOUNTER 2024-04-23 14:18 | Outpatient (AMB) | payer OTHER, SELFPAY ==
--- NOTE | 2024-04-23 14:23 | MHC.PC.OV ---
Vital Signs 04/23/24 14:29 Height 5 ft 6 in Weight 226 lb BMI 36.5 BP 126/80 Blood Pressure Location Rt brachial Position Sitting Pulse 74 Pulse Source Pulse Oximeter Pulse Oximetry (%) 98 Oxygen Delivery Method Room Air Intake Visit Reasons: 4 month follow up Intake Note: Patient here for DM f/u. Allergies lisinopril Allergy (Unknown, Verified 04/23/24 14:29) Cough Medication List - Last Reconciled 04/23/24 by JOESPH Quinonez albuterol sulfate 90 mcg/actuation (ProAir HFA) 2 puffs inhalation Q4-6H PRN atorvastatin 20 mg PO BEDTIME blood-glucose meter (FreeStyle Lite Meter kit) As directed FreeStyle Lite Strips (blood sugar diagnostic) Test blood sugar once a day NS lancets (FreeStyle Lancets) Test blood sugar once a day losartan 25 mg PO DAILY metformin ER 750 mg PO BID 90 days semaglutide 1 mg (0.75 mL) subcut QWEEK 30 days trazodone 25 mg PO DAILY Tobacco use date assessed: 11/20/23 Dental Screening Dental Screen Date: 01/02/24 HPI 4 month follow up HPI Details Pt is a diabetic, on an ARB and a statin. A1C in office today is 8.1. Due for microalbumin, this has been ordered. Denies polyuria, polydipsia, and neuropathy. Pt denies any signs and symptoms of hypoglycemia and does know how to correct it. Will increase ozempic from 0.5mg to 1mg. Will also increase metformin from 500mg bid to 750mg. [facility] Medical History Nerve root compression Systolic murmur of aorta Morbid obesity Surgical History Hx of appendectomy Social History Housing: House Alcohol intake: former Patient Tobacco Use Status: Former Tobacco user e-Cigarette/Vaping Use: Never Used Second Hand Smoke Exposure: No service: Yes Current occupational status: employed Current occupational exposures/hazards: Yes Cognitive needs: No Hearing needs: No Vision needs: No Questionnaire PHQ-9 Over the last 2 weeks, how often have you been bothered by any of the following problems? 14248 - PHQ-9 Billing: Patient declined-do not bill Source: Developed by Drs. Froilan Pina, Becky Pierce, William Rosales and colleagues, with an educational karl from [employer]. Thrive Questionnaire Date Thrive assessed: 01/02/24 KEATON-7 AMB Questionnaire KEATON-7 Date KEATON - 7 assessed: 01/02/24 Source: Developed by Drs. Froilan Pina, Becky Pierce, William Rosales and colleagues, with an educational karl from [employer]. KEATON-7 Assessment Billing KEATON-7 Assessment Tool: pt declined-do not bill Review of Systems Const Reports as per HPI Physical exam (Primary Care) Vital Signs: Last Vital Signs Pulse 74 04/23/24 14:29 BP 126/80 04/23/24 14:29 Pulse Ox 98 04/23/24 14:29 Oxygen Delivery Method Room Air 04/23/24 14:29 BMI result Body Mass Index 36.5 Tobacco/Smoking Status: Tobacco use Status Tobacco use date assessed 11/20/23 04/23/24 14:23 Patient Tobacco Use Status Former Tobacco user 04/23/24 14:23 e-Cigarette/Vaping Use Never Used 04/23/24 14:23 Thrive Assessment: Date of Thrive Assessment Date Thrive assessed 01/02/24 04/23/24 14:23 Const General: cooperative Nutritional Appearance: obese Orientation/consciousness: patient oriented x3 Resp Effort & Inspection: normal respiratory effort Auscultation: clear to auscultation bilaterally Cardio Rate: regular rate Rhythm: regular rhythm Heart sounds: S1 normal heart sound present and S2 normal heart sound present Neuro General: patient oriented x3 Extrem Other: bilat feet: + sensation with use of monofilament, feet intact Psych Appearance: grossly normal Mental Status: mental status grossly normal Speech and movement: Normal speech and movement present Affect: normal affect Attitude: cooperative Thought process: Normal thought process present Thought content: Normal thought content present Insight: Good insight present (Psych) Judgement: Good judgement present (Psych) Assessment and Plan Assessment & Plan (1) Diabetes: Code(s): E11.9 - Type 2 diabetes mellitus without complications Plan: increasing ozempic and metformin Plan The patient agreed to the use of a biomedical equipment technician for this encounter. Scribed for Gil Duarte CELL TECHNICIAN- by Evelyn Knapp biomedical equipment technician, on 04/23/2024 at 14:45 EST. Medications: Changed From metformin ER 500 mg PO BID 90 days 180 tabs 3RF To metformin ER 750 mg PO BID 90 days 180 tabs 3RF From semaglutide (Ozempic) 0.5 mg (0.736 mL) subcut QWEEK 9 mL 0RF To semaglutide 1 mg (0.75 mL) subcut QWEEK 30 days 3.75 mL 1RF Coding Level of Care Code Est Pt Level 3 (03200) Diagnoses Diabetes E11.9
[2024-04-23 14:29] VITALS: BP 126/80; PULSE 74; O2SAT 98; BMI 36.5
== END 2024-04-23 17:41 | disposition home or self-care (01) ==
PROVIDERS: PCP Nurse Practitioner Family; Visit Provider Nurse Practitioner Family
DX: E11.9 Type 2 diabetes mellitus without complications (principal)
CPT/HCPCS: 83036; 99213

== ENCOUNTER 2024-04-25 06:43 | Outpatient (REF) | payer OTHER, SELFPAY ==
[2024-04-25 10:21] LABS: MANUAL DIFF FLAG NO
[2024-04-25 10:32] LABS: Basophils Percent Auto 0.5 % (0-2); Eosinophils Absolute Auto 0.1 X10*3/uL (0.0-0.4); Eosinophils Percent Auto 1.3 % (0-4); Hematocrit 44.3 % (42.0-52.0); Hemoglobin 15.6 g/dl (14.0-18.0); Imm Gran Abs Auto 0.03 X10*3/uL (0.00-0.03); Imm Gran Pct Auto 0.3 % (0.0-0.4); Lymphocytes Percent Auto 23.8 % (20-40); Mean Corpuscular HGB Conc 35.2 g/dl (31.0-36.0); Mean Corpuscular Hemoglobin 30.2 pg (27.0-33.0); Mean Corpuscular Volume 85.7 fL (80.0-98.0); Mean Platelet Volume 9.7 fL (9.4-12.4); Monocytes Absolute Auto 0.7 X10*3/uL (0.1-1.2); Neutrophils Absolute Auto 5.7 x10*3/uL (2.0-8.3); Neutrophils Percent Auto 66.1 % (45-73); Platelet Count 268 X10*3/uL (160-400); Red Blood Count 5.17 X10*6/uL (4.60-5.80); Red Cell Distribution Width 12.6 % (11.0-16.0); White Blood Count 8.6 X10*3/uL (4.8-10.8)
[2024-04-25 10:56] LABS: Alanine Aminotransferase 34 U/L (0-40); Albumin Level 4.2 g/dL (3.5-5.0); Alkaline Phosphatase 81 U/L (39-117); Anion Gap 12 (12-20); Aspartate Amino Transferase 21 U/L (5-37); Bilirubin Total 0.4 mg/dL (0.0-1.0); Blood Urea Nitrogen 17 mg/dL (9-16); Calcium 9.7 mg/dL (8.4-10.2); Carbon Dioxide 25 mmol/L (22-29); Chloride 106 mmol/L (96-108); Cholesterol 151 mg/dL (<200); Estimated Glomerular Filt Rate > 60; Glucose Fasting 170 mg/dL (60-99); HDL Cholesterol 33 mg/dL (>40); LDL Cholesterol Calculated 72 mg/dL (<100); Sodium 139 mmol/L (135-145); Total Protein 7.1 g/dL (6.5-8.0); Triglycerides 234 mg/dL (<150)
[2024-04-25 10:57] LABS: Appearance Urine Turbid; Color Urine Dark Yellow; Glucose Urine UA Negative (Negative); Leukocyte Esterase Urine Negative (Negative); Nitrite Urine Negative (Negative); PH 5.5 (5.0-9.0); Specific Gravity - Urine 1.025 (1.005-1.025); Urine Blood Negative (Negative); Urine Ketones Trace mg/dL (Negative); Urine Protein Negative (Neg-Trace)
[2024-04-25 11:02] LABS: TSH reflex Free T4 1.12 uIU/mL (0.32-4.0)
[2024-04-25 11:06] LABS: Prostate Specific Antigen Scr 0.77 ng/mL (<0.05-4.0)
[2024-04-25 11:45] LABS: Creatinine Urine 259.82 mg/dL; Microalbum/Creatinine Ratio Ur 6.1 ug/mg cr (<30)
== END 2024-04-25 06:44 | disposition home or self-care (01) ==
LOC: HO.HMGCLDS 06:43
PROVIDERS: PCP Nurse Practitioner Family; Visit Provider Nurse Practitioner Family
DX: Z00.00 Encounter for general adult medical examination without abnormal findings (principal); E11.9 Type 2 diabetes mellitus without complications; Z12.5 Encounter for screening for malignant neoplasm of prostate
CPT/HCPCS: 36415; 80053; 80061; 81003; 82043; 82570; 84153; 84443; 85025

== ENCOUNTER 2024-06-03 14:36 | Outpatient (AMB) | payer OTHER, SELFPAY ==
--- NOTE | 2024-06-03 14:39 | A.OFFVIS_ITS ---
Vital Signs 06/03/24 14:40 Height 5 ft 6 in Weight 226 lb 10.163 oz BMI 36.6 BP 138/90 H Blood Pressure Location Rt brachial Position Sitting Pulse 72 Pulse Source Pulse Oximeter Pulse Oximetry (%) 97 Oxygen Delivery Method Room Air Intake Visit Reasons: Quilcene s/p scrn Intake Note: Sam presents in office today for a scheduled colo consult. CC; Pt reports that they are newly diagnosed with diabetes and have been taking ozempic. Pt believes that any GI upset has been related to that medication. Pt denies any other concerns at this time. Pt denies any relevant family hx. Coal Sampler Required: No Allergies lisinopril Allergy (Unknown, Verified 06/03/24 14:40) Cough HPI HPI Quilcene s/p scrn: Details: 49 year old? male with past medical history of hypertension, lumbar spondylosis, DANITA, hyperlipidemia and newly diagnosed diabetes is here today for pre colonoscopy screening.? Patient was sent to us by his PCP.? This is his first colonoscopy screening.? Patient denies any gastrointestinal symptoms in the past or at present.? Denies any personal or family history of gastrointestinal disease, colon polyps, or CRC.? Denies history of difficulty with sedation or anesthesia in the past.? History of sleep apnea.? Denies any history of cardiac, renal, pulmonary, or hepatic disease.?? No history of infectious? diseases like hepatitis A, B, C, HIV or tuberculosis.? Patient is not on any anticoagulation. Patient is on Ozempic PFSH Medical History Nerve root compression Systolic murmur of aorta Morbid obesity Surgical History Hx of appendectomy Social History Housing: House Alcohol intake: former Patient Tobacco Use Status: Former Tobacco user e-Cigarette/Vaping Use: Never Used Second Hand Smoke Exposure: No service: Yes Current occupational status: employed Current occupational exposures/hazards: Yes Cognitive needs: No Hearing needs: No Vision needs: No Review of Systems Const Denies weight gain and Denies weight loss ENT Reports no additional complaints, Denies dysphagia and Denies odynophagia Card Reports no additional complaints Resp Reports no additional complaints GI Denies abdominal pain, Denies belching, Denies melena, Denies bloating, Denies change in bowel habits, Denies dysphagia, Denies excessive flatus, Denies dyspepsia, Denies heartburn, Denies diarrhea, Denies loose stools, Denies nausea, Denies odynophagia and Denies vomiting Reports no additional complaints Musc Reports no additional complaints Neuro Reports no additional complaints Psych Reports no additional complaints Endo Reports no additional complaints Physical Exam Vital Signs: Last Vital Signs Pulse 72 06/03/24 14:40 BP 138/90 H 06/03/24 14:40 Pulse Ox 97 06/03/24 14:40 Oxygen Delivery Method Room Air 06/03/24 14:40 BMI result Body Mass Index 36.6 Const General: healthy appearing and no acute distress Nutritional Appearance: obese Orientation/consciousness: patient oriented x3 Resp Effort & Inspection: normal respiratory effort, able to speak in complete sentences, no tracheal deviation and symmetric chest movement Auscultation: clear to auscultation bilaterally Cardio Rate: regular rate GI Inspection: Yes normal to inspection, No distended and Yes obesity Palpation (GI): Soft to palpation, not firm, nontender and No hepatosplenomegaly present Auscultation: normal bowel sounds General: Yes no CVA tenderness Back/Spine/Pelvis Back: no CVA tenderness Skin General skin exam: elasticity normal, turgor normal and dry skin Neuro General: patient oriented x3 Psych Appearance: grossly normal Mental Status: mental status grossly normal Assessment & Plan Assessment & Plan (1) Screening for colon cancer: Code(s): Z12.11 - Encounter for screening for malignant neoplasm of colon Category: Medical Plan Patient denies any GI, cardiac or respiratory symptoms.? Denies any issues with anesthesia in the past.? History of sleep apnea. Patient is taking Ozempic every Sunday. Patient would like to have his procedure scheduled for Sunday. Instructed not to take Ozempic week before and the morning of the procedure.? No history infectious diseases in the past or present.? Not on any anticoagulation therapy.? No family or personal history of colon cancer or polyps.? Patient denies melena, hematochezia, unintentional weight loss or ribbon like stools.? Discussed at length the pre-procedure,? prep, diet & medications as well as what to expect prior, during and after the procedure.?? Stressed the importance of good bowel prep.? Recommended the use of Vaseline or Calmoseptine OTC & baby wipes with bowel movements to promote comfort.? ?Patient verbalizes understanding and agrees to plan of care.? He was given the opportunity to ask questions and all questions answered.? We will see him after the procedure.? Medications: New 2 bisacodyl (Dulcolax (bisacodyl)) take 4 tabs at noon the day before your colonoscopy 20 mg (4 x 5 mg) PO ONCE 1 day 4 tabs 0RF Z12.11 - Encounter for screening for malignant neoplasm of colon polyethylene glycol 3350 (Miralax) As directed by gastroenterology department at [facility] 238 grams PO ONCE 238 grams 0RF Z12.11 - Encounter for screening for malignant neoplasm of colon Coding Level of Care Code New Pt Level 3 (06172) Diagnoses Screening for colon cancer Z12.11 Time Spent (min) 40 Comment 30 minutes spent with patient and additional 10 minutes spent reviewing his records
[2024-06-03 14:40] VITALS: BP 138/90; PULSE 72; O2SAT 97; BMI 36.6
== END 2024-06-03 15:17 | disposition home or self-care (01) ==
PROVIDERS: PCP Nurse Practitioner Family; Visit Provider Nurse Practitioner Family
DX: Z01.818 Encounter for other preprocedural examination (principal); Z12.11 Encounter for screening for malignant neoplasm of colon
CPT/HCPCS: S0285

== ENCOUNTER → 2024-06-03 14:36 | Outpatient (BNVA) | payer OTHER, SELFPAY | PROVIDERS: PCP Nurse Practitioner Family; Visit Provider Nurse Practitioner Family ==

== ENCOUNTER 2024-06-10 16:05 | Outpatient (AMB) | payer OTHER, SELFPAY ==
--- NOTE | 2024-06-10 16:07 | A.OFFVIS_ITS ---
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 HgbA1C was 10.9% 11/20/23. Today in the office it is: 7.6% Initially diagnosed with T2DM in [11/2023 at the time of a DOT physical works for [employer]]. Was initially started on treatment with [metformin 500mg bid and ozempic]. Both medications were increased in dose on 04/23/24. Some nausea and diarrhea with Ozempic, but feels it is manageble and occurs 1-2 days after taking med. Has occasional reflux symptoms Current regimen Metformin 750mg bid Ozempic 1mg FS lite log avg 147 last 14 days 127 last 7 117 test 1-2 times per day Reports low sugars [none]. Family history of T2DM in [father]. Has eyes checked yearly, last eye exam [12/08], [denies] retinopathy. [Denies ] neuropathy, self care [Denies] nephropathy, on [ARB]. microalbumin 16 04/25/24 Last LDL [72] as measured on [04/25/24]. [Denies] CAD. Diet: [Balanced, lower carb often skips lunch at work] Weight: [losing weight on ozempic] No diabetes education. 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 [employer] Medical History Nerve root compression Systolic murmur of aorta Morbid obesity Surgical History Hx of appendectomy Social History Housing: House Alcohol intake: former Patient Tobacco Use Status: Former Tobacco user e-Cigarette/Vaping Use: Never Used Second Hand Smoke Exposure: No service: Yes Current occupational status: employed Current occupational exposures/hazards: Yes Cognitive needs: No Hearing needs: No Vision needs: No Physical Exam Vital Signs: Last Vital Signs Pulse 72 06/10/24 16:13 BP 134/70 06/10/24 16:13 BMI result Body Mass Index 35.6 Absence of Cushingoid features. Absence of acromegalic features. Neck exam reveals nl size thyroid about 15 gms. No thyroid nodules palpable. No carotid bruits present. Lungs CTA. Heart S1 S2, Reg R/R. No M/R/ G. Skin exam reveals absence of vitiligo or acanthosis nigricans. Abdominal exam reveals Soft NT/ND with NA BS. No organomegaly present. Const Other: Absence of Cushingoid features. Absence of acromegalic features. Neck exam reveals nl size thyroid about 15 gms. No thyroid nodules palpable. No carotid bruits present. Lungs CTA. Heart S1 S2, Reg R/R. No M/R G. Skin exam reveals absence of vitiligo or acanthosis nigricans. Neck Other: . Extrem Other: Visual exam of foot performed. No ulcerations or open lesions. No onchomycosis, no interdigit fissuring or maceration + callouses great toes bilatm Pulses 2 + distally Sensation intact to monofilament exam. Vibratory sensation sensed is intact with 128 Hz tuning fork Results AMB Hemoglobin A1c AMB Hemoglobin A1c 7.6 % Last Edit by ROBB Siddiqui on 06/10/24 16:30 Results Reviewed Results Reviewed: Laboratory Last Values Glucose (Clinic) 128 mg/dL (60-115) H 06/10/24 16:19 Hgb A1c (Clinic) 7.6 % (4.0-6.0) H 06/10/24 16:29 Laboratory Tests 07/15/19 11/20/23 04/25/24 08:25 11:49 06:58 Plt Count 268 Potassium 4.0 Creatinine 0.87 Estimated GFR > 60 Hgb A1c (Clinic) 10.9 H Calcium 9.7 AST 21 ALT 34 Triglycerides 234 H Cholesterol 151 LDL Cholesterol, Calc 72 HDL Cholesterol 33 L 25-OH Vitamin D Total 40.1 TSH 1.12 Urine Microalbumin 16.0 Microalb/Creat Ratio 6.1 Assessment & Plan Assessment & Plan (1) Diabetes: Code(s): E11.9 - Type 2 diabetes mellitus without complications Category: Medical Plan: see below Plan Type 2 diabetic no micro/macro complications diabetes diagnosed earlier this year. A1c earlier in the year over 10%, today in the office 7.6%. His most recent numbers over the past few weeks since having an increase in metformin Ozempic show an average glucose in the 114 range. He is having no lows. He was advised to have some carbohydrates at lunch to prevent lows. 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 Blood pressure and cholesterol are in target range an eye exam is up-to-date. All patient questions were answered today and is encouraged to follow up in 6 months' time. I would not recommend increasing Ozempic with his patient has I believe he will have issues with GERD. Was counseled of the progressive nature of diabetes in the need to continue to work towards achieving continued weight loss. Orders: Orders AMB Hemoglobin A1c Today E11.9 - Type 2 diabetes mellitus without complications Patient Instructions: The patient was counseled to always carry a source of sugar and on the rule of 15's: Take packet of gummie snacks and repeat again in 15 minutes if blood sugar is not in normal range. Continue to repeat every 15 minutes until blood sugar is normal. The patient was counseled to achieve a target A1C of 7% (154 avg). Fasting blood sugars should be 90-130 in the morning and less than 180 two hours after meals. Reviewed the relationship between poor diabetic control and the developement of complications metformin and GLP 1 agonist side effects reviewed with patient. Cautioned to stop metformin in the face of concurrent illness, surgery or dye testing to prevent lactic acidosis. Coding Level of Care Code New Pt Level 5 (01652) Complex EM visit Add On G2211 Diagnoses Diabetes E11.9 Time Spent (min) 60 Comment Time spent reviewing labs/provider notes, face to face, chart doc
[2024-06-10 16:13] VITALS: BP 134/70; PULSE 72; BMI 35.6
[2024-06-10 16:22] LABS: Glucose, Whole Blood 128 mg/dL (60-115)
== END 2024-06-10 16:54 | disposition home or self-care (01) ==
PROVIDERS: PCP Nurse Practitioner Family; Visit Provider Nurse Practitioner Adult Health
DX: E11.9 Type 2 diabetes mellitus without complications (principal)
CPT/HCPCS: 99205; G2211

== ENCOUNTER → 2024-06-10 16:05 | Outpatient (BNVA) | payer OTHER, SELFPAY | PROVIDERS: PCP Nurse Practitioner Family; Visit Provider Nurse Practitioner Adult Health | DX: E11.9 Type 2 diabetes mellitus without complications (principal) | CPT/HCPCS: 82947; 83036; 99202 ==

== ENCOUNTER 2024-07-22 12:49 | Outpatient (AMB) | payer OTHER, SELFPAY ==
[2024-07-22 12:50] VITALS: BP 132/76; PULSE 73; O2SAT 98; BMI 36.5
--- NOTE | 2024-07-22 12:50 | MHC.PC.OV ---
Vital Signs 07/22/24 12:50 Height 5 ft 6 in Weight 226 lb BMI 36.5 BP 132/76 Blood Pressure Location Rt brachial Position Sitting Pulse 73 Pulse Source Pulse Oximeter Pulse Oximetry (%) 98 Oxygen Delivery Method Room Air Intake Visit Reasons: Followup meds/diabetes Intake Note: pt is here for follow up, DM Testing Projects Administrator Required: No Accompanied by: Self / Same As Patient Allergies lisinopril Allergy (Unknown, Verified 07/22/24 12:51) Cough Tobacco use date assessed: 11/20/23 Dental Screening Dental Screen Date: 01/02/24 HPI Followup meds/diabetes HPI Details diabetes: seeing endo. Reports most of his numbers are below 140. systolic murmur noted, echo ordered. Pt denies any CP, N/V, dizziness, or blurred vision. #2 pt was stationed in [facility] for over 6 months (early ), exposed to a lot of small particles of sand/dust and burn pits. He does report intermittent SOB. I will order a CT scan for a better look. [facility] Medical History Nerve root compression Systolic murmur of aorta Morbid obesity Surgical History Hx of appendectomy Social History Housing: House Alcohol intake: former Patient Tobacco Use Status: Former Tobacco user e-Cigarette/Vaping Use: Never Used Second Hand Smoke Exposure: No service: Yes Current occupational status: employed Current occupational exposures/hazards: Yes Cognitive needs: No Hearing needs: No Vision needs: No Questionnaire PHQ-9 Over the last 2 weeks, how often have you been bothered by any of the following problems? 1. Little interest or pleasure in doing things: not at all 2. Feeling down, depressed, or hopeless: not at all 3. Trouble falling or staying asleep, or sleeping too much: not at all 4. Feeling tired or having little energy: not at all 5. Poor appetite or overeating: not at all 6. Feeling bad about yourself - or that you are a failure or have let yourself or your family down: not at all 7. Trouble concentrating on things, such as reading the newspaper or watching television: not at all 8. Moving or speaking so slowly that other people could have noticed. Or the opposite - being so fidgety or restless that you have been moving around a lot more than usual: not at all 9. Thoughts that you would be better off or of hurting yourself in some way: not at all Total score: 0 Depression Screening Interpretation: Negative Depression Screening Done: Yes 88090 - PHQ-9 Billing: Yes Source: Developed by Drs. Froilan Pina, Becky Pierce, William Rosales and colleagues, with an educational karl from [employer]. Thrive Questionnaire Date Thrive assessed: 07/22/24 I am a: Patient What is your living situation today?: I have a steady place to live Within the past 12 months, did the food you bought not last and you didn't have the money to get more?: Never true Within the past 12 months, did you worry whether your food would run out before you got money to buy more?: Never true Do you have trouble paying for medicines?: I choose not to answer this question Do you have trouble getting transportation to medical appointments?: No Do you have trouble paying your heating and electricity bill?: No Do you have trouble taking care of your child, family member or friend?: No Do you have trouble with day-to-day activities such as bathing, preparing meals, shopping, managing finances, etc.?: No Are you interested in more education?: No Please select the resources that you would like help with: None Currently or been in a relationship where the following occur: No concerns reported THRIVE Score: 0 AUDIT C Alcohol Use Questionnaire (AUDIT-C) 1. How often do you have a drink containing alcohol?: Monthly or less 2. How many drinks containing alcohol do you have on a typical day when you are drinking?: 1 or 2 3. How often do you have six or more drinks on one occasion?: Never Total Score: 1 Score Reviewed/Action Taken: Yes KEATON-7 AMB Questionnaire KEATON-7 Date KEATON - 7 assessed: 07/22/24 Feeling nervous, anxious, or on edge: 0 = Not at all Not being able to stop or control worryin = Not at all Worrying too much about different things: 0 = Not at all Trouble relaxin = Not at all Being so restless that it is hard to sit still: 0 = Not at all Becoming easily annoyed or irritable: 0 = Not at all Feeling afraid as if something awful might happen: 0 = Not at all Total KEATON-7 score (0-4 normal; 5-9 mild; 10-14 moderate; 15-21 severe): 0 Source: Developed by Drs. Froilan Pina, Becky Pierce, William Rosales and colleagues, with an educational karl from [employer]. KEATON-7 Assessment Billing KEATON-7 Assessment Tool: KEATON-7 Assessment [id number] Physical exam (Primary Care) Vital Signs: Last Vital Signs Pulse 73 07/22/24 12:50 BP 132/76 07/22/24 12:50 Pulse Ox 98 07/22/24 12:50 Oxygen Delivery Method Room Air 07/22/24 12:50 BMI result Body Mass Index 36.5 Tobacco/Smoking Status: Tobacco use Status Tobacco use date assessed 11/20/23 07/22/24 12:51 Patient Tobacco Use Status Former Tobacco user 07/22/24 12:51 e-Cigarette/Vaping Use Never Used 07/22/24 12:51 PHQ-9: PHQ-9 Score PHQ-9: Total score 0 07/22/24 12:51 Depression Screening Interpretation: Negative Thrive Assessment: Date of Thrive Assessment Date Thrive assessed 07/22/24 07/22/24 12:51 Currently or been in a relationship where the following occur: No concerns reported Resp Effort & Inspection: normal respiratory effort Auscultation: clear to auscultation bilaterally (slightly dim bilat) Cardio Rate: regular rate Rhythm: regular rhythm Heart sounds: S1 normal heart sound present, S2 normal heart sound present and Murmur heart sound present systolic Psych Appearance: grossly normal Mental Status: mental status grossly normal Speech and movement: Normal speech and movement present Affect: normal affect Attitude: cooperative Thought process: Normal thought process present Thought content: Normal thought content present Insight: Good insight present (Psych) Judgement: Good judgement present (Psych) Coding Level of Care Code Est Pt Level 3 (10142) Diagnoses Systolic murmur of aorta I35.8 SOB (shortness of breath) R06.02 Exposure to respiratory irritant Z77.9 Additional Codes KEATON-7 Assessment Billing - KEATON-7 Assessment Tool: KEATON-7 Assessment [id number] ([id number]) Assessment & Plan Assessment & Plan (1) Systolic murmur of aorta: Code(s): I35.8 - Other nonrheumatic aortic valve disorders Category: Medical Plan: echo (2) SOB (shortness of breath): Code(s): R06.02 - Shortness of breath Category: Medical Plan: CT scan ordered (3) Exposure to respiratory irritant: Comment[place], exposed to dust, sand, firepits Code(s): Z77.9 - Other contact with and (suspected) exposures hazardous to health Category: Medical Plan: ct Orders: Orders CA echo transthoracic complete Today I35.8 - Other nonrheumatic aortic valve disorders CT cervical spine wo IV con Today R06.02 - Shortness of breath, Z77.9 - Other contact with and (suspected) exposures hazardous to health
== END 2024-07-22 15:22 | disposition home or self-care (01) ==
PROVIDERS: PCP Nurse Practitioner Family; Visit Provider Nurse Practitioner Family
DX: I35.8 Other nonrheumatic aortic valve disorders (principal); R06.02 Shortness of breath; Z77.9 Other contact with and (suspected) exposures hazardous to health

== ENCOUNTER → 2024-07-22 12:49 | Outpatient (BNVA) | payer OTHER, SELFPAY | PROVIDERS: PCP Nurse Practitioner Family; Visit Provider Nurse Practitioner Family | DX: I35.8 Other nonrheumatic aortic valve disorders (principal); R06.02 Shortness of breath; Z77.9 Other contact with and (suspected) exposures hazardous to health | CPT/HCPCS: 96127; 99212 ==

== ENCOUNTER → 2024-09-01 14:59 | Outpatient (REF) | payer OTHER, SELFPAY ==
--- NOTE | 2024-09-01 15:01 | CA_ITS ---
Transthoracic Echocardiogram Patient (Last, First, Middle): Sam Barlow R Gender: Male Date of : 1975 Age: 49 Procedure Date: 09/01/2024 Procedure Type: Transthoracic Echocardiogram Location: OP Height: 167.64 cm Weight: 97.52 kg BSA: 2.06 m2 Heart Rate: bpm BP: 118 / 84 mmHg Pot Operator: IVAN Referring MD: Gil Duarte [facility]- Manager Shell: Severo Luke MD Symptoms: I35.8 - Other nonrheumatic aortic valve disorders Study Quality: Adequate ECG Rhythm: Sinus Conclusions: - Essentially normal study Findings Left Ventricle Normal left ventricular size, thickness, and systolic function. The visually estimated ejection fraction is between 65-70%. Spectral Doppler is indicative of a normal filling pattern. Right Ventricle Normal right ventricular cavity size and systolic function. Atria Both atria are normal in size. Interatrial shunt cannot be excluded. Aortic Valve The aortic valve structure and function is likely normal. There is no aortic valve stenosis. There is no aortic valve regurgitation. Mitral Valve Likely normal mitral valve structure and function. There is trace mitral valve regurgitation. There is no mitral valve stenosis. Pulmonic Valve The pulmonic valve was not well visualized. Tricuspid Valve Likely normal tricuspid valve structure and function. There is trace tricuspid valve regurgitation. The right ventricular systolic pressure is normal. The right ventricular systolic pressure is 24 mmHg. Normal right atrial pressure. There is no evidence of pulmonary hypertension. Great Vessels All visible segments of the aorta are normal in size. The pulmonary artery was not well visualized. There is no dilatation of the ascending aorta measuring 3.00 cm. Venous The inferior vena cava is normal in size and collapses greater than 50% with inspiration. Pericardium/Pleural There is no evidence of pericardial effusion. Measurements 2D Linear Measurements IVSd: 1.17 0.6-0.9/0.6-1.0 cm LVIDd: 3.65 3.9-5.3/4.2-5.9 cm LVIDd Index: 1.77 2.4-3.2/2.2-3.1 cm/m2 LVIDs: 2.04 2.0-3.6 cm LVPWd: 1.13 0.7-1.1 cm LA Diam: 3.40 2.7-3.8/3.0-4.0 cm LAIDs Index: 1.65 1.5-2.3 cm/m2 LV Mass: 168.50 67-162/88-224 g LV Mass Index: 81.80 43-95/49-115 g/m2 LVOT Diam: 2.00 3.0+(-)1.3 cm 2D Systolic Function EF 4C: 65.60 >55% EF 2C: 76.10 >55% EF BiP: 70.70 >55% Mitral Valve MV Pk E: 0.88 MV PK A: 0.66 MV Decel Time: 232.00 E/A: 1.30 E'Lateral: 9.57 E'Medial: 6.53 E/E' Med: 13.50 E/E' Lat: 9.20 PHT: 68.00 MVA PHT: 3.24 Decel [place]: 3.80 Aortic Valve AoV Pk De: 1.77 AoV Mn De: 1.15 AoV VTI: 0.37 AoV Pk Grad: 13.00 Aov Mn Grad: 6.00 MARISOL Cont.VTI: 2.63 LVOT LVOT Pk De: 1.62 LVOT Mn De: 1.09 LVOT VTI: 0.31 LVOT Pk Grad: 10.00 LVOT Mn Grad: 5.00 LVOT Diam: 2.00 LVOT Area: 3.14 Diastolic Function MV Pk E: 0.88 MV Pk A: 0.66 E/A: 1.30 E'Medial: 6.53 E/E' Med: 13.50 E' Laterial: 9.57 E/E' Lat: 9.20 Right Ventricle TAPSE (mm): 22.90 TVS' De: 13.10 Tricuspid Valve TR Pk De: 2.31 TR Pk Grad: 21.00 RA Press: 3.00 RVSP: 24.00 Great Vessels Aorta Sinus of Valsalva: 3.12 2.0-3.[address] [place]: 2.32 1.7-3.4 cm Ao Asc: 3.00 2.1-3.4 cm Updated in Other Vendor System with Status of Final Severo Luke MD electronically signed on 09/01/2024 4:18:51 PM with status of Final
== END ==
LOC: HO.CARD 14:59
PROVIDERS: PCP Nurse Practitioner Family; Visit Provider Nurse Practitioner Family
DX: I35.8 Other nonrheumatic aortic valve disorders (principal)
CPT/HCPCS: 93306

== ENCOUNTER → 2024-09-01 15:01 | Outpatient (BNV) | payer OTHER, SELFPAY | PROVIDERS: PCP Nurse Practitioner Family; Visit Provider Internal Medicine Cardiovascular Disease | DX: I35.8 Other nonrheumatic aortic valve disorders (principal) | CPT/HCPCS: 93306 ==

== ENCOUNTER 2024-09-12 14:10 | Outpatient (REF) | payer OTHER, SELFPAY | END 2024-09-12 14:11 | disposition home or self-care (01) | LOC: HO.CT 14:10 | PROVIDERS: PCP Nurse Practitioner Family; Visit Provider Nurse Practitioner Family | DX: R06.02 Shortness of breath (principal); Z77.9 Other contact with and (suspected) exposures hazardous to health | CPT/HCPCS: 71250 ==

== ENCOUNTER 2024-12-15 07:27 | Day surgery (SDC) | payer OTHER, SELFPAY ==
[2024-12-11 14:57] VITALS: BMI 36.5
--- NOTE | 2024-12-12 10:14 | HO.ANESPROP2 ---
Documented by User: Carolina Blair NP 12/12/24 10:15 HPI - Anesthesia Eval Consult details Narrative: 49yo M for Colonoscopy Anesthesia Pre-Procedure Meds Is the patient on any of the following meds?: GLP1/DPP4 PMFSH Active Problems Active Problems: All Active Problems Exposure to respiratory irritant (Acute) SOB (shortness of breath) (Acute) Diabetes (Acute) Screening for colon cancer (Acute) Screening for prostate cancer (Acute) Newly diagnosed diabetes (Acute) Vertebrogenic low back pain (Acute) Lumbar spondylosis (Acute) Lumbar radiculitis (Acute) Lower back pain (Acute) Physical exam (Acute) Skin lesion (Acute) Systolic murmur of aorta (Acute) Morbid obesity (Acute) Fatigue (Acute) Cough (Acute) Obstructive sleep apnea (Acute) Past Medical History Medical History Diabetes Sleep apnea Nerve root compression Systolic murmur of aorta Morbid obesity Surgical History Surgical History Hx of appendectomy Social History Social History Housing: House Alcohol intake: former Patient Tobacco Use Status: Former Tobacco user e-Cigarette/Vaping Use: Never Used Second Hand Smoke Exposure: No Use of substances other than those prescribed or required for medical reasons: No Are you DNR?: No Advance Directives: No Advance Directives Information Provided: Yes service: Yes Current occupational status: employed Current occupational exposures/hazards: Yes Cognitive needs: No Hearing needs: No Vision needs: No Meds Allergies Allergy/AdvReac Type Severity Reaction Status Date / Time lisinopril Allergy Unknown Cough Verified 07/22/24 12:51 Home Medications ?Medication ?Instructions ?Recorded ?Confirmed ?Last Taken ?Type trazodone 50 mg tablet 25 mg PO DAILY 10/26/23 04/23/24 Unknown History Exam Height,Weight and Vital Signs: Height 5 ft 6 in Weight 102.512 kg Pertinent Lab Results Pertinent Lab Results: Laboratory Tests 04/25/24 06:58 WBC 8.6 Hgb 15.6 Hct 44.3 Plt Count 268 Sodium 139 Potassium 4.0 Chloride 106 Carbon Dioxide 25 BUN 17 H Creatinine 0.87 Narrative Narrative: ECHO 2023 (murmur) Conclusions: - Essentially normal study Assessment and Plan Assessment Anesthesia Assessment: Chart Reviewed Documented by User: Opal Segovia MD 12/15/24 09:29 PMFSH Past Medical History Medical History Diabetes Sleep apnea Nerve root compression Systolic murmur of aorta Morbid obesity Surgical History Surgical History Hx of appendectomy History of Problems with Anesthesia: No Social History Social History Housing: House Alcohol intake: former Patient Tobacco Use Status: Former Tobacco user e-Cigarette/Vaping Use: Never Used Second Hand Smoke Exposure: No Use of substances other than those prescribed or required for medical reasons: No Are you DNR?: No Advance Directives: No Advance Directives Information Provided: Yes service: Yes Current occupational status: employed Current occupational exposures/hazards: Yes Cognitive needs: No Hearing needs: No Vision needs: No Meds Allergies Allergy/AdvReac Type Severity Reaction Status Date / Time lisinopril Allergy Unknown Cough Verified 07/22/24 12:51 Home Medications ?Medication ?Instructions ?Recorded ?Confirmed ?Last Taken ?Type trazodone 50 mg tablet 25 mg PO DAILY 10/26/23 04/23/24 Unknown History Exam Airway Mallampati Class: III TM Dist: >3cm Neck ROM: Full Loose/Missing/Broken Teeth: No Heart: RRR Lungs: CTA Assessment and Plan Assessment Anesthesia Assessment: Anesthesia Plan Discussed Final Anesthetic Review History of Problems with Anesthesia: No NPO: Yes ASA Class: III Final Preanesthetic Review: Meds/Allgs Chart Reviewed, Consent Obtained/Reviewed and Anes Risks/Benef Reviewed Patient Risk: Intermediate Procedure Risk: Low Anesthetic Plan Anesthetic Plan: MAC: Disposition: Standard PACU
[2024-12-15 07:55] VITALS: BMI 35.6
[2024-12-15 07:57] VITALS: BP 129/88; PULSE 75; RESP 16; TEMP 36.4; O2SAT 97
[2024-12-15 08:12] LABS: Glucose, Whole Blood 151 mg/dL (60-115)
--- NOTE | 2024-12-15 08:38 | MHC.SHP ---
Pre-Procedural Eval Section A - 24 Hr Update-Section A only Date of Service: 12/15/24 The patient is an INPATIENT: No The patient has been examined within 24 hours of the surgical procedure. The History & Physical has been completed within 30 days and I have reviewed it.: No Section B - Complete if H&P > 30 days Chief Complaint: Colon cancer screening Relevant Family History (Specify if Yes): No Relevant Social History: Tobacco Use (Former smoker) Present Medications: see Short Stay Collaborative assessment Medical History: Significant History (hypertension, lumbar spondylosis, DANITA, hyperlipidemia and newly diagnosed diabetes) History of Previous Operations: Relevant previous surgery/procedure and date(s) (History of appendectomy) Allergies: Allergies Allergy/AdvReac Type Severity Reaction Status Date / Time lisinopril Allergy Unknown Cough Verified 07/22/24 12:51 Review of Systems Sugical H&P ROS: Negative: Constitution, Cardiovascular, Respiratory and Gastrointestinal Exam Surgical H&P Exam: Normal: Heart, Normal: Lungs, Normal: Extremities and Normal: Abdomen Plan Diagnosis/Plan: Unchanged I have reviewed the history and physical and performed a pertinent physical examination on my patient. No changes have occurred unless specified. Time Spent With Patient Time: Total time managing care of this patient today ____ minutes.
[2024-12-15] MEDS: Lactated Ringers 1,000 ML 100 ML IVCONT (08:49)
--- NOTE | 2024-12-15 10:04 | P.OPN-COLO_ITS ---
Colonoscopy Operative Note Operative Note Date of Service: 12/15/24 Narrative: COLONOSCOPY TILL CECUM Pre-op diagnosis: Colon cancer screening (first colon). Post-op diagnosis:? Diverticulosis, hemorrhoids Endoscopist:? Yola Lovell MD Anesthesia:?MAC Consent: Indications for the procedure and potential complications of bleeding, perforation, reaction to medications and missed diagnosis were discussed with the patient and informed consent was obtained. Instrument: Olympus CF H 190 L variable stiffness adult colonoscope Monitoring: Vital signs and clinical assessment, intermittent blood pressure monitoring, continuous EKG monitoring, Pulse oximetry and Carbon Dioxide monitoring were done throughout the procedure. Please see anesthesia flowsheet. Colon withdrawl time was 13 minutes. Procedure: The patient was placed in the left lateral decubitis position and pre-procedure medications were administered. After a digital rectal examination of the ano-rectum, the video colonoscope was inserted into the rectum and advanced through the colon to the cecum. The colonoscope was slowly withdrawn in a retrograde panoramic fashion and the colon mucosa was carefully examined including a retroflexed view of the rectum. Findings and interventions are described below. Procedure Difficulty: without difficulty Findings: Terminal Ileum: Not evaluated Cecum: Normal Ascending Colon: Normal Transverse Colon: Normal Descending Colon: Normal Sigmoid Colon: Moderate diverticulosis Rectum: Normal Ano-rectum: Small internal hemorrhoids Colon preparation: Good after copious irrigation. Biggers Bowel Preparation Scale Right colon; 2 Transverse colon: 2 Left colon; 2 (0 = Unprepared colon segment with mucosa not seen due to solid stool that cannot be cleared. 1 = Portion of mucosa of the colon segment seen, but other areas of the colon segment not well seen due to staining, residual stool and/or opaque liquid. 2 = Minor amount of residual staining, small fragments of stool and/or opaque liquid, but mucosa of colon segment seen well. 3 = Entire mucosa of colon segment seen well with no residual staining, small fragments of stool or opaque liquid) Impression and Post Procedure Diagnosis: Colonoscopy Findings: No polyps were detected Moderate diverticulosis seen in the sigmoid colon Small hemorrhoids on retroflexed exam. Plan: Repeat Colonoscopy in 10 years (earlier if patient has rectal bleeding or a change in bowel habits). Above findings were reviewed with the patient and relevant handouts were given and the discharge area. Patient was placed on the colonoscopy recall list for repeat colonoscopy in 10 years.
[2024-12-15 10:05] VITALS: BP 107/63; PULSE 72; RESP 18; TEMP 36.6; O2SAT 98
[2024-12-15 10:19] VITALS: BP 118/75; PULSE 81; RESP 18; TEMP 36.3; O2SAT 98
== END 2024-12-15 10:55 | disposition home or self-care (01) ==
PROVIDERS: PCP Nurse Practitioner Family; Visit Provider Internal Medicine Gastroenterology
PROC: 0DJD8ZZ Inspection of Lower Intestinal Tract, Via Natural or Artificial Opening Endoscopic (ICD-10-PCS; CPT 45378; principal; 2024-12-15 09:30)
DX: Z12.11 Encounter for screening for malignant neoplasm of colon (principal); K57.30 Diverticulosis of large intestine without perforation or abscess without bleeding; K64.8 Other hemorrhoids; I10 Essential (primary) hypertension; E78.5 Hyperlipidemia, unspecified; E11.9 Type 2 diabetes mellitus without complications; G47.33 Obstructive sleep apnea (adult) (pediatric); E66.01 Morbid (severe) obesity due to excess calories; Z68.36 Body mass index [BMI] 36.0-36.9, adult; Z79.85 Long-term (current) use of injectable non-insulin antidiabetic drugs; Z79.899 Other long term (current) drug therapy; Z88.8 Allergy status to other drugs, medicaments and biological substances; Z87.891 Personal history of nicotine dependence
CPT/HCPCS: 45378; 82947; J2003; J2704

== ENCOUNTER → 2024-12-15 07:27 | Outpatient (BNV) | payer OTHER, SELFPAY | PROVIDERS: PCP Nurse Practitioner Family; Visit Provider Internal Medicine Gastroenterology | DX: Z12.11 Encounter for screening for malignant neoplasm of colon (principal); K57.30 Diverticulosis of large intestine without perforation or abscess without bleeding; K64.8 Other hemorrhoids | CPT/HCPCS: 45378 ==

== ENCOUNTER 2025-05-19 15:38 | Outpatient (AMB) | payer OTHER, SELFPAY ==
--- NOTE | 2025-05-19 15:40 | A.OFFPC_ITS ---
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 albuterol sulfate 90 mcg/actuation (ProAir HFA) 2 puffs inhalation Q4-6H PRN atorvastatin 20 mg PO BEDTIME blood-glucose meter (FreeStyle Lite Meter kit) As directed FreeStyle Lite Strips (blood sugar diagnostic) Test blood sugar once a day NS lancets (FreeStyle Lancets) Test blood sugar once a day losartan 25 mg PO DAILY metformin ER 750 mg PO BID 90 days semaglutide 2 mg (0.75 mL) subcut QWEEK trazodone 25 mg PO DAILY Tobacco use date assessed: 11/20/23 Dental Screening Dental Screen Date: 01/02/24 Did you have a dental visit in the last 12 months?: Yes Did you have a dental problem in the last 6 months where you did not have access to dental care?: No Was dental information given to patient?: Patient has dentist HPI PE annual HPI Details History of Present Illness The patient is a 50-year-old male presenting with diabetes mellitus and obesity. His recent hemoglobin A1c level is 7.2%, suggesting the need for better glycemic management. He denies polyuria, polydipsia, or neuropathy, and his last eye exam was recent. He reports abdominal pain, blood in stool, constipation, and diarrhea, but denies any urinary symptoms. He denies any suicidal or homicidal ideation. The patient admits to dietary inconsistencies, especially in the last two weeks due to vacation. He is on Ozempic, with plans to increase the dose from 1 mg to 2 mg to enhance glycemic control. Health Maintenance - Colon cancer screening is up to date. -eye exam is up to date Social History - Reports dietary inconsistencies, parti cularly over the last two weeks due to vacation. Review of Systems - Gastrointestinal: Reports abdominal pa in, blood in stool, constipation, and diarrhea. Denies urinary symptoms. - Endocrine: Denies polyuria, polydipsia , or neuropathy. - Psychiatric: Denies suicidal or homici deneen ideation. Physical Exam General: Cooperative, healthy appearing, comfortable, no acute distress and well developed Orientation: Patient oriented x3 Limitations: No limitations Head: Normal to inspection Ears: Hearing grossly normal bilaterally Nose: Normal external nose present Face and sinus: Normal facial exam Eyes: Appearance normal, both eyes and all related structures Neck: Normal visual inspection and Yes full ROM Respiratory: Normal respiratory effort and able to speak in complete sentences. Clear to auscultation bilaterally Cardiovascular: Regular rate and rhythm. Normal S1 and S2 GI: Abdominal pain reported, blood in stool, constipation, diarrhea : Testicles without masses/lesions and no hernias appreciated. Denies any urinary symptoms Skin: No rashes or lesions noted Neuro: Patient oriented x3 Extremities: Normal to inspection. Feet intact bilaterally with positive sensation using monofilament Results - Labs: Hemoglobin A1c level of 7.2%. Plan The plan for managing diabetes mellitus involves increasing the Ozempic dosage to 2 mg to enhance glycemic control. The patient should maintain a consistent diet to help manage his diabetes and obesity. Regular follow-up visits are necessary to monitor his condition and adjust treatment as needed. Discussion Notes I discussed with the patient the importance of increasing his Ozempic dosage to 2 mg to better manage his diabetes. We also talked about the need for dietary consistency to support his treatment plan. I advised regular follow-up appointments to monitor his progress and make necessary adjustments to his treatment. Patient Instructions - Increase Ozempic dosage to 2 mg as pre scribed. - Maintain a consistent diet to help man age diabetes and obesity. - Attend regular follow-up appointments to monitor condition and adjust treatment as needed. [facility] Medical History Diabetes Sleep apnea Nerve root compression Systolic murmur of aorta Morbid obesity Surgical History Hx of appendectomy Social History Housing: House Alcohol intake: former Patient Tobacco Use Status: Former Tobacco user e-Cigarette/Vaping Use: Never Used Second Hand Smoke Exposure: No service: Yes Current occupational status: employed Current occupational exposures/hazards: Yes Cognitive needs: No Hearing needs: No Vision needs: No Questionnaire PHQ-9 Over the last 2 weeks, how often have you been bothered by any of the following problems? 1. Little interest or pleasure in doing things: not at all 2. Feeling down, depressed, or hopeless: not at all 3. Trouble falling or staying asleep, or sleeping too much: not at all 4. Feeling tired or having little energy: not at all 5. Poor appetite or overeating: not at all 6. Feeling bad about yourself - or that you are a failure or have let yourself or your family down: not at all 7. Trouble concentrating on things, such as reading the newspaper or watching television: not at all 8. Moving or speaking so slowly that other people could have noticed. Or the opposite - being so fidgety or restless that you have been moving around a lot more than usual: not at all 9. Thoughts that you would be better off or of hurting yourself in some way: not at all Total score: 0 Depression Screening Interpretation: Negative Depression Screening Done: Yes 15704 - PHQ-9 Billing: Yes Source: Developed by Drs. Froilan Pina, Becky Pierce, William Rosales and colleagues, with an educational karl from [employer]. Thrive Questionnaire Date Thrive assessed: 07/22/24 I am a: Patient What is your living situation today?: I have a steady place to live Within the past 12 months, did the food you bought not last and you didn't have the money to get more?: Never true Within the past 12 months, did you worry whether your food would run out before you got money to buy more?: Never true Do you have trouble paying for medicines?: I choose not to answer this question Do you have trouble getting transportation to medical appointments?: No Do you have trouble paying your heating and electricity bill?: No Do you have trouble taking care of your child, family member or friend?: No Do you have trouble with day-to-day activities such as bathing, preparing meals, shopping, managing finances, etc.?: No Are you interested in more education?: No Please select the resources that you would like help with: None Currently or been in a relationship where the following occur: No concerns reported THRIVE Score: 0 KEATON-7 AMB Questionnaire KEATON-7 Date KEATON - 7 assessed: 05/19/25 Feeling nervous, anxious, or on edge: 0 = Not at all Not being able to stop or control worryin = Not at all Worrying too much about different things: 0 = Not at all Trouble relaxin = Not at all Being so restless that it is hard to sit still: 0 = Not at all Becoming easily annoyed or irritable: 0 = Not at all Feeling afraid as if something awful might happen: 0 = Not at all Total KEATON-7 score (0-4 normal; 5-9 mild; 10-14 moderate; 15-21 severe): 0 Source: Developed by Drs. Froilan Pina, Becky Pierce, William Rosales and colleagues, with an educational karl from [employer]. KEATON-7 Assessment Billing KEATON-7 Assessment Tool: KEATON-7 Assessment 30555 Physical exam (Primary Care) Vital Signs: Last Vital Signs Pulse 85 05/19/25 15:41 BP 120/84 05/19/25 15:41 Pulse Ox 95 05/19/25 15:41 Oxygen Delivery Method Room Air 05/19/25 15:41 BMI result Body Mass Index 35.7 Tobacco/Smoking Status: Tobacco use Status Tobacco use date assessed 11/20/23 05/19/25 15:44 Patient Tobacco Use Status Former Tobacco user 05/19/25 15:44 e-Cigarette/Vaping Use Never Used 05/19/25 15:44 PHQ-9: PHQ-9 Score PHQ-9: Total score 0 05/19/25 15:44 Depression Screening Interpretation: Negative Thrive Assessment: Date of Thrive Assessment Date Thrive assessed 07/22/24 05/19/25 15:44 Currently or been in a relationship where the following occur: No concerns reported Results AMB Hemoglobin A1c AMB Hemoglobin A1c 7.2 % Last Edit by Florencia Collazo MA on 05/19/25 16:03 Results Reviewed Results Reviewed: Laboratory Last Values Hgb A1c (Clinic) 7.2 % (4.0-6.0) H 05/19/25 15:50 Coding Level of Care Code Est Pt Level 3 (84866) Est Pt Prev Care 40-64y(56771) Diagnoses Encounter for routine adult physical exam with abnormal findings Z00.01 Vitamin D deficiency E55.9 Diabetes E11.9 Screening for prostate cancer Z12.5 Additional Codes KEATON-7 Assessment Billing - KEATON-7 Assessment Tool: KEATON-7 Assessment 65477 ([id number]) PHQ-9 - 95495 - PHQ-9 Billing: Yes ([id number]) Assessment & Plan Assessment & Plan (1) Encounter for routine adult physical exam with abnormal findings: Code(s): Z00.01 - Encounter for general adult medical examination with abnormal findings Category: Medical (2) Vitamin D deficiency: Code(s): E55.9 - Vitamin D deficiency, unspecified Category: Medical (3) Diabetes: Code(s): E11.9 - Type 2 diabetes mellitus without complications Category: Medical (4) Screening for prostate cancer: Code(s): Z12.5 - Encounter for screening for malignant neoplasm of prostate Category: Medical Plan . Orders: Orders Complete Blood Count Auto Diff Today Z00.01 - Encounter for general adult medical examination with abnormal findings TSH reflex Free T4 Today Z00.01 - Encounter for general adult medical examination with abnormal findings UA CC w/rflx Micro + Cult Today Z00.01 - Encounter for general adult medical examination with abnormal findings Lipid Panel Today Z00.01 - Encounter for general adult medical examination with abnormal findings Vitamin D 25-OH Total Today E55.9 - Vitamin D deficiency, unspecified Comprehensive [place]. Panel Fast Today Z00.01 - Encounter for general adult medical examination with abnormal findings Microalbumin, Random (w Creat) Today E11.9 - Type 2 diabetes mellitus without complications Prostate Specific Antigen Scr Today Z12.5 - Encounter for screening for malignant neoplasm of prostate AMB Hemoglobin A1c Today Z13.9 - Encounter for screening, unspecified Medications: Changed From semaglutide (Ozempic) 1 mg (0.75 mL) subcut QWEEK 9 mL 1RF To semaglutide 2 mg (0.75 mL) subcut QWEEK 9 mL 1RF
[2025-05-19 15:41] VITALS: BP 120/84; PULSE 85; O2SAT 95; BMI 35.7
--- OUTSIDE RECORDS SUMMARY | 2025-05-19 16:02 | XMS_ITS | Clinical Summary ---
Author Organization [facility] Address [address] [place] [address] Care Team Providers Care Head [employer] Name Role Phone Unavailable Primary Care Provider Unavailabl e Immunizations Immunization Administration Dates Next Due Influenza,injectable,quad,Prsrv Fr 07/16/2017 Influenza,injectable,quad,preservative 9 Influenza,seasonal,trivalent,preservative (FLUZO NE MDV) 06/27/2021 Tdap 05/17/2017 Social History Tobacco Use Types Packs/Day Years Used Date Smoking Tobacco: Never Assessed Sex and Gender Information Value Date Recorded Sex Assigned at Not on file Legal Sex Male 9:00 AM EST Gender Identity Not on file Sexual Orientation Not on file Plan of Treatment Health Maintenance Due Date Last Done Comments Hepatitis C Screening 1974 Hep B (1 of 3 - 19+ 3-dose series) 1993 Pneumococcal 50+ years (1 of 1 - PCV) 2024 Zoster (Shingrix) (1 of 2) 2024 COVID-19 Vaccine ( - 2023-2 5 season) 2024 Influenza (#1) 2025 06/27/2021, 07/15/2019, 07/16/2017 DTaP/Tdap/Td (2 - Td or Tdap) 05/17/2027 05/17/2017 HPV Vaccine (No Doses Required) Completed Hep A Aged Out No longer eligi ble based on patient's age to complete this topic Hib Aged Out No longer eligi ble based on patient's age to complete this topic Meningococcal ACWY Aged Out No longer eligible based on patient's age to complete this topic
== END 2025-05-19 16:04 | disposition home or self-care (01) ==
LOC: HO.HMCC 15:39
PROVIDERS: PCP Nurse Practitioner Family; Visit Provider Nurse Practitioner Family
DX: Z00.01 Encounter for general adult medical examination with abnormal findings (principal); E11.9 Type 2 diabetes mellitus without complications; E55.9 Vitamin D deficiency, unspecified

== ENCOUNTER → 2025-05-19 15:38 | Outpatient (BNVA) | payer OTHER, SELFPAY | PROVIDERS: PCP Nurse Practitioner Family; Visit Provider Nurse Practitioner Family | DX: Z00.01 Encounter for general adult medical examination with abnormal findings (principal); E55.9 Vitamin D deficiency, unspecified; E11.9 Type 2 diabetes mellitus without complications; Z87.891 Personal history of nicotine dependence | CPT/HCPCS: 83036; 96127 ==